=== PATIENT | male | born 1990 | race Caucasian/White ===

== ENCOUNTER 2022-09-28 15:36 | Emergency (ER) | payer OTHER ==
--- NOTE | 2022-09-28 16:07 | ED Physician Documentation ---
PD HPI BACK PAIN - Stated complaint Stated Complaint: LOWER LT BACK PX - Chief complaint Chief Complaint: Back Pain - History obtained from History obtained from: Patient - Additional information Additional information: This is a 31-year-old male, Who works as a commercial airline pilot, who presents with severe left lower back pain radiating into the left leg. He has had some mild backaches recently but around 11 AM today had a sudden severe burning in the left lower back lateral to the spine radiating into the leg and down the lateral aspect of the left leg. He also felt weakness in decrease sensation though not complete numbness in the left leg. He felt as though it was difficult to walk or flex the muscles with similar strength to the right leg. He has no history of trauma to the back, no prior back injuries, he has not had a fever or chills, no bowel or bladder changes, no saddle anesthesia, no foot drop. He took ibuprofen Without any relief. The patient notes that he is being transferred to a base in [place] for a period of time within the next week or so and would have difficulty following up With his primary provider here for any intervention. Review of Systems Constitutional: reports: Reviewed and negative Eyes: reports: Reviewed and negative Ears: reports: Reviewed and negative Nose: reports: Reviewed and negative Throat: reports: Reviewed and negative Cardiac: reports: Reviewed and negative Respiratory: reports: Reviewed and negative GI: reports: Reviewed and negative : reports: Reviewed and negative Skin: reports: Reviewed and negative Musculoskeletal: reports: Back pain, Extremity pain Neurologic: reports: Reviewed and negative Psychiatric: reports: Reviewed and negative Endocrine: reports: Reviewed and negative Immunocompromised: reports: Reviewed and negative PD PAST MEDICAL HISTORY - Past Medical History Past Medical History: No - Past Surgical History Past Surgical History: No - Present Medications Home Medications: Ambulatory Orders Medication Instructions Recorded Confirmed HYDROcod/ACETAM 5/325 [[place] 5/325] 1 - 2 tablet PO Q6H PRN #14 tablet 09/28/22 predniSONE [Deltasone] 10 mg PO [id number] #42 tab 09/28/22 tiZANidine [Zanaflex] 4 mg PO Q8H PRN #30 tablet 09/28/22 - Allergies Allergies/Adverse Reactions: Allergies Allergy/AdvReac Type Severity Reaction Status Date / Time No Known Drug Allergies Allergy Verified 09/28/22 15:55 - Social History Does the pt smoke?: No Smoking Status: Never smoker Does the pt drink ETOH?: Yes Does the pt have substance abuse?: No - Immunizations Immunizations are current?: Yes PD ED PE NORMAL - Vitals Vital signs reviewed: Yes - General General: Alert and oriented X 3, No acute distress, Well developed/nourished - HEENT HEENT: Atraumatic, Pharynx benign - Neck Neck: Supple, no meningeal sign, No JVD - Cardiac Cardiac: RRR, No murmur - Respiratory Respiratory: No respiratory distress, Clear bilaterally - Abdomen Abdomen: Normal bowel sounds, Soft - Back Back: No CVA TTP, No spinal TTP, Other (left lumbar paravertebral muscle pain, no ttp of the spine) - Derm Derm: Normal color, Warm and dry, No rash - Extremities Extremities: No deformity, Normal ROM s pain, No edema, No calf tenderness / cord, Other (decreased left patellar reflexes and decreased sensation to the left leg, 5/5 strength of the foot, no significant gait changes. ). No: No tenderness to palpate (mild ttp left lateral thigh) Results - Vitals Vitals: Vital Signs - 24 hr 09/28/22 09/28/22 15:51 18:15 Temperature 36.5 C Heart Rate 68 60 Respiratory 16 16 Rate Blood Pressure 137/70 H 148/73 H O2 Saturation 99 100 Oxygen O2 Source Room air PD Medical Decision Making - ED course Complexity details: reviewed results, re-evaluated patient, considered differential, d/w patient ED course: 31-year-old male with no significant past medical history presented with left lower back pain radiating down the left leg with some left leg numbness and weakness. He is well-appearing on physical exam, has no signs of cauda equina, no fever, No IV drug use, or Other concern for epidural abscess at this time. He does however have slight decrease in his patellar reflexes. I was planning to recommend outpatient MRI however patient is being sent to [place] for training soon and will not be able to get into outpatient MRI expeditiously therefore we did obtain it here. It does show some significant degenerative changes as well as foraminal stenosis With some compression of L4 and L5 which correspond with his symptoms, and he also has epidural lipomatosis. These find ings are more significant that I would expect for patient his age with no other health issues and otherwise quite healthy therefore I do recommend that he follow-up with the neurosurgeon on outpatient basis. We discussed supportive measures in the meantime, avoided lifting and twisting, physical therapy and he will be given a short course of steroids as well as Tizanidine. He was also given a prescription for 14 tablets of hydrocodone though he will discuss with his [facility] doctor whether or not to take these as it certainly would make it so that he could not fly. He is aware of this, Is well as he is aware of the potential for sedation with tizanidine and to use cautiously,and has been in communication with his [facility] doctor regarding these medication. The patient was given discharge instructions and discharged home in stable condition with anticipated plans to follow-up with his [facility] doctor and pursue neurosurgery consultation outpatient. I discussed return precautions in detail with the patient Departure - Departure Disposition: Home, Self Care Clinical Impression: Lumbar back pain with radiculopathy affecting left lower extremity Condition: Good Instructions: Lumbar Radiculopathy Prescriptions: predniSONE [Deltasone] 10 mg PO [id number] #42 tab HYDROcod/ACETAM 5/325 [[place] 5/325] 1 - 2 tablet PO Q6H PRN #14 tablet PRN Reason: Pain tiZANidine [Zanaflex] 4 mg PO Q8H PRN #30 tablet PRN Reason: pain Comments: As we discussed, you have some degenerative disc disease on your MRI as well as some foraminal stenosis which may be compressing on L4 and L5 of your spinal cord resulting in your left leg pain and numbness. You also have some additional findings that we discussed. I do recommend that you see a neurosurgeon for follow-up evaluation. They may recommend only physical therapy or possible surgical intervention. In the meantime, avoid any lifting or potential trauma to the area. I have given you a short course of steroids as well as muscle relaxers to use as needed and a short course of hydrocodone to use as needed. As we discussed, both MS relaxers and hydrocodone can cause sedation and you should not fly or drive while on these medications. Forms: Activity restrictions Discharge Date/Time: 09/28/22 18:32
[2022-09-28] MEDS ORDERED: KETOROLAC 30 MG/ML VIAL IM STA (16:14)
--- NOTE | 2022-09-28 17:58 | MRI Report ---
PROCEDURE: LUMBAR SPINE WO INDICATIONS: left radiculopathy, worsening TECHNIQUE: Noncontrast sagittal T1 spin echo and T2 fast echo, sagittal STIR, axial T1 and T2 fast spin echo thr ough the lumbar spine. In cases with scoliosis, additional coronal T2 fast spin echo may be performe d. COMPARISON: None. FINDINGS: Image quality: Excellent. Alignment and Curvature: No plain films are available for comparison. Thus, for numbering purposes, 5 lumbar type vertebral bodies will be presumed for the current report. This should be confirmed with plain film correlation prior to any lumbar spinal intervention. There is loss of normal lumbar lordo sis. 2 mm of retrolisthesis of L3 on L4 and L4 on L5. Bone Marrow: Marrow is of normal overall signal. No acute vertebral body compression fractures. Mi nimal reactive signal within the endplates of the thoracolumbar spine. Spinal Cord: Conus medullaris terminates at the mid L1 level. Visualized cord demonstrates normal s ignal and size. Paraspinous Soft Tissues: No paravertebral masses. T12-L1: Normal in appearance. L1-L2: Mild diffuse disc bulge. Minimal canal stenosis. No foraminal stenosis. L2-L3: Normal in appearance. L3-L4: Mild disc height loss and desiccation. Mild diffuse disc bulge. Mild upper lipomatosis. Mild canal stenosis. Mild bilateral foraminal stenosis. L4-L5: Mild disc desiccation and diffuse disc bulge with superimposed left posterolateral disc extr usion extending into the neural foramen. Mild canal stenosis. Mild right and severe left foraminal st enosis. Mild facet and ligament flavum hypertrophy. Mild epidural lipomatosis. Left L4 nerve root com pression. L5-S1: Mild disc height loss and desiccation. Mild diffuse disc bulge with superimposed small centr al protrusion. Mild canal stenosis. Mild bilateral foraminal stenosis. IMPRESSION: 1. Multilevel degenerative disc and facet disease, in addition to epidural lipomatosis and ligamentum flavum hypertrophy. 2. Mild multilevel canal stenoses. Next line 3. Multilevel foraminal stenoses, worst at L4-5 where there is associated intraforaminal nerve root c ompression. Recommend correlation with clinical symptoms to ascertain relevance of this finding. 4. Five lumbar type vertebral bodies were presumed for the purposes of the current report. Correlati on with plainfilms for numbering purposes is recommended prior to any lumbar spinal intervention. Reviewed by: Maria Del Rosario Ozuna MD on 09/28/2022 5:56 PM PST Approved by: Maria Del Rosario Ozuna MD on 09/28/2022 5:56 PM PST Station ID: [id number]
[2022-09-28 18:16] VITALS: BP 148/73
== END 2022-09-28 18:32 | disposition home or self-care (01) ==
LOC: ED 15:36
DX: M54.50 Low back pain, unspecified (principal); M54.16 Radiculopathy, lumbar region
CPT/HCPCS: 96372; 99283; 99284